=== PATIENT | male | born 1975 | race Caucasian/White ===

== ENCOUNTER 2016-12-10 03:00 | Emergency (ER) | payer MEDICAID ==
[2016-12-10 03:14] VITALS: BP 118/90; PULSE 72; RESP 18; TEMP 97.7; O2SAT 99
[2016-12-10] MEDS ORDERED: Oxycodone/Acetaminophen 5/325 mg Tab PO STA (03:25)
--- NOTE | 2016-12-10 03:30 | ED PDOC ---
Arrival/HPI - General Chief Complaint: Dental Pain Time Seen by Provider: 12/10/16 03:11 Historian: Patient - History of Present Illness Narrative History of Present Illness (Text): 12/10/16 03:11 Diamante Rodriguez is a 41 year old male who presents to the emergency department complaining of left front-tooth pain and left sided facial swelling since last night. Patient states that about a month and a half ago he had a dental procedure done to his teeth as a temporary fix. Patient thinks he has developed an infection to affected area and is unable to sleep tonight due to the pain, prompting him to come to the emergency department. Patient states to have taken 2 tablets of Advil to little relief. Patient has no other complaints at this time. Time/Duration: 1-3 hours Symptom Onset: Gradual Symptom Course: Unchanged Severity Level: Mild Activities at Onset: Rest Context: Home Past Medical History - Provider Review Nursing Documentation Reviewed: Yes - Psychiatric Hx Substance Use: No Family/Social History - Physician Review Nursing Documentation Reviewed: Yes Family/Social History: No Known Family HX Smoking Status: n Hx Alcohol Use: Yes Hx Substance Use: No Allergies/Home Meds Allergies/Adverse Reactions: Allergies No Known Allergies Allergy (Verified 12/10/16 03:14) Review of Systems - Physician Review All systems were reviewed & negative as marked: Yes - Review of Systems Constitutional: Other (facial swelling). absent: Fevers, Night Sweats Eyes: absent: Photophobia ENT: Other (Teeth pain). absent: Hearing Changes, Tinnitus Respiratory: absent: SOB Cardiovascular: absent: Chest Pain Gastrointestinal: absent: Abdominal Pain Genitourinary Male: absent: Dysuria, Frequency Musculoskeletal: absent: Arthralgias Skin: absent: Rash, Pruritis Neurological: absent: Headache Endocrine: absent: Diaphoresis Hemo/Lymphatic: absent: Adenopathy Physical Exam Vital Signs Temp Pulse Resp BP Pulse Ox 12/10/16 03:08 97.7 F 72 18 118/90 99 Appearance: Positive for: Well-Appearing, Non-Toxic, Comfortable Pain Distress: None Mental Status: Positive for: Alert and Oriented X 3 - Systems Exam Head: Present: Atraumatic Pupils: Present: PERRL Mouth: Present: Moist Mucous Membranes, Other (Poor dental caries; no gingival erythema; no abscess; no swelling; no submental or sublingual induration). No: Drooling, Trismus Pharnyx: No: Peritonsilar Swelling, Uvular Deviation, Muffled/Hoarse Voice, Strider Neck: Present: Normal Range of Motion Respiratory/Chest: No: Respiratory Distress, Accessory Muscle Use Cardiovascular: Present: Regular Rate and Rhythm Neurological: Present: GCS=15 Psychiatric: Present: Alert, Oriented x 3 Medical Decision Making - Medication Orders Current Medication Orders: Discontinued Medications Oxycodone/Acetaminophen (Percocet 5/325 Mg Tab) 1 tab PO STAT STA Stop: 12/10/16 03:26 Last Admin: 12/10/16 03:42 Dose: 1 tab MAR Pain Assessment Document 12/10/16 03:42 JOL (Rec: 12/10/16 03:43 JOL [facility] [place]-[id number]) Pain Reassessment Is this a pain reassessment? No Sleep Is patient sleeping during reassessment? No Presence of Pain Presence of Pain Yes Pain Scale Used Pain Scale Used Numeric Location Upper or Lower Upper Pain Location Body Site Face Description Intensity of Pain at present 9 Pain Behavior Restlessness Facial Grimacing Penicillin V Potassium (Penicillin Vk Tab) 500 mg PO STAT STA PRN Reason: Protocol Stop: 12/10/16 03:26 Last Admin: 12/10/16 03:34 Dose: 500 mg - Scribe Statement The provider has reviewed the documentation as recorded by the Se Richardson Provider Scribe Attestation: All medical record entries made by the Scribe were at my direction and personally dictated by me. I have reviewed the chart and agree that the record accurately reflects my personal performance of the history, physical exam, medical decision making, and the department course for this patient. I have also personally directed, reviewed, and agree with the discharge instructions and disposition. Disposition/Present on Arrival - Present on Arrival Any Indicators Present on Arrival: No History of DVT/PE: No History of Uncontrolled Diabetes: No Urinary Catheter: No History of Decub. Ulcer: No History Surgical Site Infection Following: None - Disposition Have Diagnosis and Disposition been Completed?: Yes Diagnosis: Pain, dental Disposition: HOME/ ROUTINE Disposition Time: 03:36 Condition: STABLE Discharge Instructions (ExitCare): Toothache (ED) Additional Instructions: Please follow up with a dentist tomorrow. REturn to the ER for any worsening symptoms, fever, or for any other concerns. Prescriptions: Acetaminophen with Codeine [Tylenol with Codeine #3 Tablet] 1 each PO Q4H PRN # 10 tablet PRN Reason: Pain, Moderate (4-7) Penicillin VK [Penicillin VK Tab] 500 mg PO Q6H #80 tab Referrals: Khai Barrera MD [Primary Care Provider] - Follow up with primary Forms: [employer] (Bulgarian)
== END 2016-12-10 03:52 | disposition home or self-care (01) ==
LOC: ED 03:00
DX: K08.89 Other specified disorders of teeth and supporting structures (principal)

== ENCOUNTER 2017-05-27 22:16 | Emergency (ER) | payer MEDICAID ==
--- NOTE | 2017-05-27 22:31 | ED PDOC ---
Arrival/HPI - General Chief Complaint: Dental Pain Time Seen by Provider: 05/27/17 22:28 Historian: Patient - History of Present Illness Narrative History of Present Illness (Text): 05/27/17 22:28 42yo male with no PMHx who present with complaint of right sided lower molar toothache since days. He states the tooth was cracked years ago and he started having pain recently. He notes that he saw a Dentist who referred him to a Dental surgeon, but the dental surgeon was closed yesterday and today. He present the Amoxicillin and percocet that he was given by the Dentist. States the percocet did not help his pain and he don't like taking it or how it made him feel. He denies any other complaint. Past Medical History - Provider Review Nursing Documentation Reviewed: Yes - Psychiatric Hx Substance Use: No - Anesthesia Hx Anesthesia: No Family/Social History - Physician Review Nursing Documentation Reviewed: Yes Family/Social History: Unknown Family HX Smoking Status: Never Smoked Hx Alcohol Use: Yes Frequency of alcohol use: Socially Hx Substance Use: No Allergies/Home Meds Allergies/Adverse Reactions: Allergies No Known Allergies Allergy (Verified 05/27/17 22:25) Home Medications: Home Meds Medication Instructions Recorded Confirmed Acetaminophen/Cod NO 4 60 mg PO QID PRN 05/27/17 05/27/17 [Tylenol/Cod 300 mg-60 mg] Amoxicillin [Amoxicillin] 500 mg PO TID 05/27/17 05/27/17 Review of Systems - Physician Review All systems were reviewed & negative as marked: Yes - Review of Systems Constitutional: Normal Eyes: Normal ENT: Other (toothache) Respiratory: Normal Cardiovascular: Normal Gastrointestinal: Normal Genitourinary Male: Normal Musculoskeletal: Normal Skin: Normal Neurological: Normal Endocrine: Normal Hemo/Lymphatic: Normal Psychiatric: Normal Physical Exam Vital Signs Reviewed: Yes Vital Signs Temp Pulse Resp BP Pulse Ox 05/27/17 22:31 97.6 F 65 20 125/88 99 Temperature: Afebrile Blood Pressure: Normal Pulse: Regular Respiratory Rate: Normal Appearance: Positive for: Well-Appearing, Non-Toxic, Comfortable Pain Distress: None Mental Status: Positive for: Alert and Oriented X 3 - Systems Exam Head: Present: Atraumatic, Normocephalic Pupils: Present: PERRL Extroacular Muscles: Present: EOMI Conjunctiva: Present: Normal Mouth: Present: Moist Mucous Membranes. No: Normal Teeth (Partially avulsed/ cracked right lower molar noted. No gum swelling) Neck: Present: Normal Range of Motion Respiratory/Chest: Present: Clear to Auscultation, Good Air Exchange. No: Respiratory Distress, Accessory Muscle Use Cardiovascular: Present: Regular Rate and Rhythm, Normal S1, S2. No: Murmurs Abdomen: Present: Normal Bowel Sounds. No: Tenderness, Distention, Peritoneal Signs Back: Present: Normal Inspection Upper Extremity: Present: Normal Inspection. No: Cyanosis, Edema Lower Extremity: Present: Normal Inspection. No: Edema Neurological: Present: GCS=15, CN II-XII Intact, Speech Normal Skin: Present: Warm, Dry, Normal Color. No: Rashes Psychiatric: Present: Alert, Oriented x 3, Normal Insight, Normal Concentration Medical Decision Making - Medication Orders Current Medication Orders: Discontinued Medications Ketorolac Tromethamine (Toradol) 60 mg IM STAT STA Stop: 05/27/17 22:29 Last Admin: 05/27/17 22:44 Dose: Not Given Non-Admin Reason: Patient Refused Disposition/Present on Arrival - Present on Arrival Any Indicators Present on Arrival: No History of DVT/PE: No History of Uncontrolled Diabetes: No Urinary Catheter: No History of Decub. Ulcer: No History Surgical Site Infection Following: None - Disposition Have Diagnosis and Disposition been Completed?: Yes Diagnosis: Toothache Disposition: HOME/ ROUTINE Disposition Time: 23:00 Patient Plan: Discharge Patient Problems: Current Active Problems Problem Status Onset Toothache Acute Condition: STABLE Discharge Instructions (ExitCare): Dental Pain (DC) Additional Instructions: Follow up with your dental surgeon continue with your medication Return to ED for any new symptoms Forms: [employer] (Belizean)
[2017-05-27 22:38] VITALS: BP 125/88; PULSE 65; RESP 20; TEMP 97.6; O2SAT 99; BMI 27.8
== END 2017-05-27 23:10 | disposition home or self-care (01) ==
LOC: ED 22:16
DX: K08.89 Other specified disorders of teeth and supporting structures (principal)